=== PATIENT | male | born 1980 | race African-American/Black ===

== ENCOUNTER 2024-02-26 05:49 | Emergency (ER) | payer SELFPAY ==
[2024-02-26 05:47] VITALS: BP 129/90; PULSE 69; RESP 13; TEMP 36.7; O2SAT 98
[2024-02-26 06:00] VITALS: PULSE 68; O2SAT 97
[2024-02-26 07:43] VITALS: BP 132/90; PULSE 63; RESP 16; O2SAT 100
--- NOTE | 2024-02-26 07:50 | PC.NURSE ---
Pt. reports taking 750mg Keppra BID. Pt missed both doses yesterday. MD Vasquez notified.
--- NOTE | 2024-02-26 07:53 | ED.GENADULT ---
HPI - General Adult General Chief complaint: Seizure Stated complaint: Seizure Time Seen by Provider: 02/26/24 06:51 History of Present Illness HPI narrative: [age] male with history of seizure presented to the emergency department for evaluation after him a seizure. Patient states that he does take medications but missed his dose last night, and yesterday morning. Patient denies any current pain or complaint. Related Data Allergies Allergy/AdvReac Type Severity Reaction Status Date / Time No Known Allergies Allergy Verified 02/26/24 06:01 Review of Systems Review of Systems: All systems reviewed & are unremarkable except as noted in HPI and below Exam Narrative: APPEARANCE: Well appearing, no pain, no distress, well-nourished. HEAD: normocephalic, atraumatic. EYES: PERRLA/EOMI, conjunctivae clear. NOSE: Normal no drainage EARS:TMS clear with good light reflex. THROAT: Pharynx clear, no exudate. NECK: Supple. No adenopathy, no masses. RESPIRATORY: Airway patent, respirations nonlabored. Clear to auscultation bilaterally, no rales, rhonchi, wheezing. CARDIOVASCULAR: Regular rate and rhythm without murmurs rubs or gallops. ABDOMINAL: Soft, nontender, nondistended, normal bowel sounds MUSCULOSKELETAL: Moves all extremities. Strength/ROM intact, No edema, No calf tenderness. NEURO: Alert. Cranial nerves II through XII intact. Good gait. Good coordination SKIN: Warm, dry. Normal Color Course Vital Signs Vital signs: Vital Signs Temperature 98.1 F 02/26/24 05:47 Pulse Rate 69 02/26/24 05:47 Respiratory Rate 13 02/26/24 05:47 Blood Pressure 129/90 02/26/24 05:47 Pulse Oximetry 98 02/26/24 05:47 Oxygen Delivery Room Air 02/26/24 05:47 Temperature 98.1 F 02/26/24 05:47 Pulse Rate 88 02/26/24 09:31 Respiratory Rate 16 02/26/24 09:31 Blood Pressure 131/85 02/26/24 09:31 Pulse Oximetry 99 02/26/24 09:31 Oxygen Delivery Room Air 02/26/24 06:00 Medical Decision Making [facility] Narrative Medical decision making narrative: [age] old male presenting emergency department for evaluation for seizure after missing 2 doses of his Keppra. Patient takes 750 mg of Keppra b.i.d.. Patient was treated with 1 g of IV Keppra. Patient is afebrile with no leukocytosis and hemoglobin of 13.6. Patient has no significant abnormalities on his CMP. Can not is alert oriented and back to his baseline. Patient denies any pain or complaints. Patient was comfortable the plan for discharge. Patient states he does have access to his Keppra. Patient states he is feeling improved and patient was comfortable the plan for discharge to home. Differential Diagnosis Differential Diagnosis: Seizure, breakthrough seizure, medical noncompliance Vital Signs Vital Signs: Vital Signs Temperature 98.1 F 02/26/24 05:47 Pulse Rate 69 02/26/24 05:47 Respiratory Rate 13 02/26/24 05:47 Blood Pressure 129/90 02/26/24 05:47 Pulse Oximetry 98 02/26/24 05:47 Oxygen Delivery Room Air 02/26/24 05:47 Temperature 98.1 F 02/26/24 05:47 Pulse Rate 88 02/26/24 09:31 Respiratory Rate 16 02/26/24 09:31 Blood Pressure 131/85 02/26/24 09:31 Pulse Oximetry 99 02/26/24 09:31 Oxygen Delivery Room Air 02/26/24 06:00 Lab Data Lab results reviewed: Yes I reviewed the patient's lab results. 02/26/24 08:03 02/26/24 08:03 Labs: Lab Results 02/26/24 Range/Units 08:03 WBC 5.2 (4.5-10.0) K/mm3 RBC 4.72 (4.6-6.20) M/mm3 Hgb 13.6 L (14.0-18.0) g/dL Hct 42.5 (42.0-52.0) % MCV 90.0 (80-100) fl MCH 28.8 (26-34) pg MCHC 32.0 (32-36) g/dl RDW 13.1 (11.5-14.5) % Plt Count 237 (150-375) k/mm3 MPV 11.3 H (7.4-10.4) fl Immature Gran % (Auto) 0.2 (0-0.5) % Neut % (Auto) 58.7 (45.5-73.1) % Lymph % (Auto) 29.0 (18.3-44.2) % [place] % (Auto) 8.8 H (2.6-8.5) % Eos % (Auto) 2.7 (0-4.4) % Baso % (Auto) 0.6 (0.2-1.2) % Lymph # (Auto) 1.51 (0.9-3.2) K/mm3 [place] # (Auto) 0.5 (0.1-0.6) K/mm3 Eos # (Auto) 0.1 (0-0.3) K/mm3 Baso # (Auto) 0.0 (0.0-0.1) K/mm3 Abs Immat Gran (auto) 0.01 (0.00-0.031) K/mm3 Absolute Neuts (auto) 3.1 (1.3-6.7) K/mm3 Absolute Nucleated RBC 0.000 (0.0-0.012) K/mm3 Nucleated RBC % 0.0 (0.0-0.2) % Sodium 141 (137-145) mmol/L Potassium 4.2 (3.4-5.0) mmol/L Chloride 102 (98-107) mmol/L Carbon Dioxide 28 (22-30) mmol/L Anion Gap 11 (4-12) mmol/L BUN 12 (9-20) mg/dL Creatinine 0.82 (0.7-1.3) mg/dL Estim Creat Clear Calc 100 ml/min Estimated GFR > 60 (59 - ) Glucose 79 (65-110) mg/dL Calcium 9.6 (8.4-10.2) mg/dL Total Bilirubin 0.7 (0.2-1.3) mg/dL AST 31 (17-59) U/L ALT 17 (6-50) U/L Alkaline Phosphatase 90 (38-126) U/L Total Protein 8.0 (6.3-8.2) g/dL Albumin 4.7 (3.5-5.1) g/dL Discharge Plan Discharge Clinical Impression: Epileptic seizure Patient Disposition: Home, Self-Care Condition: Stable Instructions: Antibiotic Form, Epilepsy (ED) Additional Instructions: Take your Keppra as directed and do not miss any doses. Continue to have close follow-up with your neurologist and with your primary care physician. If you have any worsening symptoms then please call or return to the emergency department. Patient Language: Qatari Follow-up/Referrals: PHYSICIAN,SKI LIFT ATTENDANT [Primary Care Provider] -
[2024-02-26] MEDS: levETIRAcetam 1000MG/NACL100ML 1,000 MG/100 ML BAG 400 MG IVPB (08:01)
[2024-02-26] MEDS: SODIUM CHLORIDE 0.9% IV 1,000 ML 999 ML IV CONT (08:02)
[2024-02-26 08:11] LABS: Basophils Percent Auto 0.6 % (0.2-1.2); Eosinophils Absolute Auto 0.1 K/mm3 (0-0.3); Eosinophils Percent Auto 2.7 % (0-4.4); Hematocrit 42.5 % (42.0-52.0); Hemoglobin 13.6 g/dL (14.0-18.0); Immature Granulocyte Absolute 0.01 K/mm3 (0.00-0.031); Immature Granulocyte Percent A 0.2 % (0-0.5); Lymphocytes Absolute Auto 1.51 K/mm3 (0.9-3.2); Mean Corpuscular Hemoglobin 28.8 pg (26-34); Mean Platelet Volume 11.3 fl (7.4-10.4); Monocytes Absolute Auto 0.5 K/mm3 (0.1-0.6); Monocytes Percent Auto 8.8 % (2.6-8.5); Neutrophils Absolute Auto 3.1 K/mm3 (1.3-6.7); Neutrophils Percent Auto 58.7 % (45.5-73.1); Platelet Count Result 237 k/mm3 (150-375); Red Blood Count 4.72 M/mm3 (4.6-6.20); Red Cell Distribution Width 13.1 % (11.5-14.5); White Blood Count 5.2 K/mm3 (4.5-10.0)
[2024-02-26 08:21] LABS: Alanine Aminotransferase 17 U/L (6-50); Albumin Level 4.7 g/dL (3.5-5.1); Alkaline Phosphatase 90 U/L (38-126); Anion Gap 11 mmol/L (4-12); Aspartate Amino Transferase 31 U/L (17-59); Bilirubin,Total 0.7 mg/dL (0.2-1.3); Blood Urea Nitrogen 12 mg/dL (9-20); Calcium 9.6 mg/dL (8.4-10.2); Carbon Dioxide 28 mmol/L (22-30); Chloride 102 mmol/L (98-107); Estimated CRCL calculation 100 ml/min; Estimated Glomerular Filt Rate > 60; Glucose 79 mg/dL (65-110); Potassium 4.2 mmol/L (3.4-5.0); Sodium 141 mmol/L (137-145)
[2024-02-26 09:31] VITALS: BP 131/85; PULSE 88; RESP 16; O2SAT 99
--- OUTSIDE RECORDS SUMMARY | 2024-03-01 10:02 | XMS_ITS | Patient Health Summary ---
Author Organization [facility] [employer] Address [address] [place] [address] Care Team Providers Care Manager Foreign Name Role Phone Unavailable Primary Care Provider Unavailabl e Note from [facility] [employer] [employer],non-owned Affiliates and Associated Physician Practices is amultiple site organization consisting of ambulatory clinics and hospital sitesin [place], [place], [place] and [place]. This disclosure is being madepursuant to the Care Everywhere program and may not contain all information available regarding this patient. Last updated 17.[facility] [employer] Allergies No known active allergies Medications Be aware that medications may not be up to date on this document. Always verify current medications with the patient. No known medications Active Problems No known active problems Social History Tobacco Use Types Packs/Day Years Used Date Smoking Tobacco: Light Smoker Smokeless Tobacco: Never Tobacco Cessation:Ready to Q uit: Yes Alcohol Use Standard Drinks/Week Comments Yes 3 (1 standard drink = 0.6 oz pur e alcohol) Occasionally Sex and Gender Information Value Date Recorded Sex Assigned at Not on file Gender Identity Not on file Sexual Orientation Not on file Last Filed Vital Signs Vital Sign Reading Time Taken Comments Blood Pressure 159/92 02/12/2020 12:01 PM SHOTBLAST EQUIPMENT OPERATOR Pulse 67 02/12/2020 12:01 PM SHOTBLAST EQUIPMENT OPERATOR Temperature 36 ??C (96.8 ??F) 02/12/2020 12:01 PM SHOTBLAST EQUIPMENT OPERATOR Respiratory Rate 14 02/12/2020 12:01 PM SHOTBLAST EQUIPMENT OPERATOR Oxygen Saturation 99% 02/12/2020 12:01 PM SHOTBLAST EQUIPMENT OPERATOR Inhaled Oxygen Concentration - - Weight 83.9 kg (185 lb) 02/12/2020 12:01 PM SHOTBLAST EQUIPMENT OPERATOR Height 175.3 cm (5' 9 ) 02/12/2020 12:01 PM SHOTBLAST EQUIPMENT OPERATOR Body Mass Index 27.32 02/12/2020 12:01 PM SHOTBLAST EQUIPMENT OPERATOR Procedures * LIPID PROFILE(Performed 02/26/2020) Performed for Screening for hyperlipidemia * COMPREHENSIVE METABOLIC PANEL(Performed 02/26/2020) Performed for Screening for diabetes mellitus * XR FINGERS RIGHT 2VW OR MORE(Performed 01/20/2020) Performed for Foreign body of right index finger * ED FOREIGN BODY REMOVAL(Performed 01/20/2020) Performed for Foreign body of right index finger Results * (ABNORMAL) COMPREHENSIVE METABOLIC PANEL (02/26/2020 10:56 AM SHOTBLAST EQUIPMENT OPERATOR) [facility] Glucose 93 70 - 105 mg/dL [facility] ACCOUNT BILL BUN 14 8.9 - 20.6 mg/dL [facility] ACCOUNT BILL Creatinine 1.02 0.72 - 1.25 mg/dL [facility] ACCOUNT BILL eGFR by MDRD >60 >60 mL/min/1.7 3m2 [facility] ACCOUNT BILL eGFR by MDRD >60 >60 mL/min/1.7 3m2 [facility] ACCOUNT BILL Sodium 144 136 - 145 mmol/L [facility] ACCOUNT BILL Potassium 4.7 3.5 - 5.1 mmol/L [facility] ACCOUNT BILL Chloride 108(H) 98 - 107 mmol/L [facility] ACCOUNT BILL CO2 28 23 - 31 mmol/L [facility] ACCOUNT BILL Calcium 9.1 8.4 - 10.4 mg/dL [facility] ACCOUNT BILL Protein Total 6.8 6.4 - 8.3 gm/dL [facility] ACCOUNT BILL Albumin 4.3 3.5 - 5.2 gm/dL [facility] ACCOUNT BILL Bilirubin Total 0.3 0.2 - 1.2 mg/dL [facility] ACCOUNT BILL Comment:Attention clinician: Reference Range change. Alkaline Phosphatase 77 40 - 150 U/L [facility] ACCOUNT BILL Comment:Attention clinician: Reference Range change. AST 18 5 - 34 U/L [facility] ACCOUNT BILL ALT 13 0 - 61 U/L [facility] ACCOUNT BILL Blood BLOOD SPECIMEN / Unknown 02/26/2020 10:56 AM SHOTBLAST EQUIPMENT OPERATOR 02/26/2020 Narrative Resulting Agency Comment Lab Testing performed at: [address] ??[facility] [id number] Wilmer Archuleta MD LAB - CHEMISTRY LELE IBARRA [facility] ACCOUNT BILL [address] [place] [address] * LIPID PROFILE (02/26/2020 10:56 AM SHOTBLAST EQUIPMENT OPERATOR) Cholesterol 175 <200 mg/dL [facility] ACCOUNT BILL Triglycerides 53 <150 mg/dL [facility] ACCOUNT BILL HDL Cholesterol 68 >40 mg/dL [facility] ACCOUNT BILL VLDL Calculated 11 <=30 mg/dL [facility] ACCOUNT BILL LDL Calculated 96 <130 mg/dL [facility] ACCOUNT BILL Blood BLOOD SPECIMEN / Unknown 02/26/2020 10:56 AM SHOTBLAST EQUIPMENT OPERATOR 02/26/2020 Narrative Resulting Agency Comment Lab Testing performed at: [address] ??[facility] [id number] Wilmer Archuleta MD LAB - CHEMISTRY LELE IBARRA Performing Organization Address City/[facility]/ZIP Co de Phone Number [facility] ACCOUNT BILL [address] [place] [address] * XR FINGERS RIGHT 2VW OR MORE (01/20/2020 9:27 PM SHOTBLAST EQUIPMENT OPERATOR) Anatomical Region Laterality Modality Upper Extremity, Wrist / Hand Ra diographic Imaging 01/21/2020 7:09 AM SHOTBLAST EQUIPMENT OPERATOR Impressions 01/21/2020 8:34 AM SHOTBLAST EQUIPMENT OPERATOR Metallic needle projected in the soft tissues of the tip of the index finger. Edited by Kait Chopra on 01/21/2020 8:30 AM *Reading Radiologist: Roly Mckenzie on 01/21/2020 at 8:34 AM Narrative 01/21/2020 8:34 AM SHOTBLAST EQUIPMENT OPERATOR RIGHT FINGERS. HISTORY: Foreign body. Views of the finger demonstrate a metallic needle projected in the soft tissues of the tip of the index finger. No osseous involvement is seen. There is no fracture present. Procedure Note Roly Mckenzie MD - 01/21/2020 RIGHT FINGERS. HISTORY: Foreign body. Views of the finger demonstrate a metallic needle projected in the soft tissues of the tip of the index finger. No osseous involvement is seen. There is no fracture present. IMPRESSION Metallic needle projected in the soft tissues of the tip of the index finger. Edited by Kait Chopra on 01/21/2020 8:30 AM *Reading Radiologist: Roly Mckenzie on 01/21/2020 at 8:34 AM Hardik Whitt PA-C DIAGNOSTIC IMAGING ORDERABLES * Foreign Body (01/20/2020 9:13 PM SHOTBLAST EQUIPMENT OPERATOR) Narrative Rahel Mesa MD - 01/20/2020 9:13 PM SHOTBLAST EQUIPMENT OPERATOR Hardik Whitt PA-C ? 01/20/2020 10:59 PM Foreign Body Date/Time: 01/20/2020 10:57 PM Performed by: Hardik Whitt PA-C Authorized by: Hardik Whitt PA-C Consent: ??Consent obtained: ??Verbal ??Consent given by: ??Patient ??Risks discussed: ??Bleeding and pain ??Alternatives discussed: ??No treatment [place] protocol: ??Procedure explained and questions answered to patient or proxy's satisfaction: yes ?Required blood products, implants, devices, and special equipment available: yes ?Patient identity confirmed: ??Verbally with patient and arm band Location: ??Location: ??Finger ??Finger location: ??R index finger ??Depth: ??Subungual ??Tendon involvement: ??None Pre-procedure details: ??Imaging: ??X-ray ??Neurovascular status: intact ?? Anesthesia (see MAR for exact dosages): ??Anesthesia method: ??Local infiltration ??Local anesthetic: ??Bupivacaine 0.5% w/o epi Procedure type: ??Procedure complexity: ??Simple Procedure details: ??Dissection of underlying tissues: no ?Bloodless field: no ?Removal mechanism: pliers. ??Foreign bodies recovered: ??1 ??Description: ??Needle ??Intact foreign body removal: yes ?? Post-procedure details: ??Neurovascular status: intact ?Skin closure: ??None ??Dressing: ??Sterile dressing ??Patient tolerance of procedure: ??Tolerated well, no immediate complications Hardik Whitt PA-C PROCEDURE/MINOR MAYNOR GICAL ORDERABLES
--- OUTSIDE RECORDS SUMMARY | 2024-03-01 10:02 | XMS_ITS | Clinical Summary ---
Author Organization [facility] [employer] Address [address] [place] [address] Care Team Providers Care Surveyor Instrument Assistant Name Role Phone Unavailable Primary Care Provider Unavailabl e Source Comments [facility] [employer],non-owned Affiliates and Associated Physician Practices is amultiple site organization consisting of ambulatory clinics and hospital sitesin [place], [place], [place] and [place]. This disclosure is being madepursuant to the Care Everywhere program and may not contain all information available regarding this patient. Last updated 17.[facility] [employer] Allergies No known active allergies Medications Be aware that medications may not be up to date on this document. Always verify current medications with the patient. No known medications Active Problems No known active problems Family History Medical History Relation Name Comments Cancer - Colon Father Diabetes - Type 2 Mother Relation Name Status Comments Father Mother Alive Social History Tobacco Use Types Packs/Day Years [...] Comments Blood Pressure 159/92 02/12/2020 12:01 PM LONG FILLER CIGAR ROLLER MACHINE Pulse 67 02/12/2020 12:01 PM LONG FILLER CIGAR ROLLER MACHINE Temperature 36 ??C (96.8 ??F) 02/12/2020 12:01 PM LONG FILLER CIGAR ROLLER MACHINE Respiratory Rate 14 02/12/2020 12:01 PM LONG FILLER CIGAR ROLLER MACHINE Oxygen Saturation 99% 02/12/2020 12:01 PM LONG FILLER CIGAR ROLLER MACHINE Inhaled Oxygen Concentration - - Weight 83.9 kg (185 lb) 02/12/2020 12:01 PM LONG FILLER CIGAR ROLLER MACHINE Height 175.3 cm (5' 9 ) 02/12/2020 12:01 PM LONG FILLER CIGAR ROLLER MACHINE Body Mass Index 27.32 02/12/2020 12:01 PM LONG FILLER CIGAR ROLLER MACHINE Plan of Treatment Health Maintenance Due Date Last Done Comments HIV SCREENING 10/04/1994 HEPATITIS C SCREENING 09/30/1997 DTAP/TDAP/TD VACCINES (1 - Tdap) 10/04/1998 HEPATITIS B VACCINE (1 of 3 - 19+ 3-dose series) 10/04/1998 PNEUMOCOCCAL VACCINE (1 of 2 - PCV) 10/04/1998 SCREENING FOR DIABETES 02/25/2023 02/26/2020 COVID-19 VACCINE (1 - 2023-2 5 season) 2023 INFLUENZA VACCINE (#1) 2023 DEPRESSION SCREENING 02/08/2024 LIPID TESTING 02/25/2025 02/26/2020 ZOSTER VACCINE (1 of 2) 10/04/2029 HIB VACCINE Aged Out No longer eligi ble based on patient's age to complete this topic HPV VACCINE Aged Out No longer eligi ble based on patient's age to complete this topic MENINGOCOCCAL (Group B) VACCINE Aged Out No longer eligible based on patient's age to complete this topic MENINGOCOCCAL VACCINE Aged Out No shravan richa eligible based on patient's age to complete this topic Procedures Procedure Name Priority Date/Time Associated Diagnosis Comments COMPREHENSIVE METABOLIC PANEL Routine 02/26/2020 10:56 AM LONG FILLER CIGAR ROLLER MACHINE Screening for diabetes mellitus LIPID PROFILE Routine 02/26/2020 10:56 AM LONG FILLER CIGAR ROLLER MACHINE Screening for hyperlipidemia from Last 3 Months or Most Recently Relevant to Health Maintenance Results * (ABNORMAL) COMPREHENSIVE METABOLIC PANEL (02/26/2020 10:56 AM LONG FILLER CIGAR ROLLER MACHINE) Glucose 93 70 - 105 mg/dL [facility] [...] BLOOD SPECIMEN / Unknown 02/26/2020 10:56 AM LONG FILLER CIGAR ROLLER MACHINE 02/26/2020 Narrative Resulting Agency Comment Lab Testing performed at: [address] ??[facility] [id number] Wilmer Archuleta MD LAB - CHEMISTRY ORDLashae IBARRA Performing Organization Address City/[facility]/ZIP Co de Phone Number [facility] ACCOUNT BILL [address] [place] [address] * LIPID PROFILE (02/26/2020 10:56 AM LONG FILLER CIGAR ROLLER MACHINE) Cholesterol 175 <200 mg/dL [facility] ACCOUNT BILL Triglycerides 53 <150 mg/dL [facility] ACCOUNT BILL HDL Cholesterol 68 >40 mg/dL [facility] ACCOUNT BILL VLDL Calculated 11 <=30 mg/dL [facility] ACCOUNT BILL LDL Calculated 96 <130 mg/dL [facility] ACCOUNT BILL Blood BLOOD SPECIMEN / Unknown 02/26/2020 10:56 AM LONG FILLER CIGAR ROLLER MACHINE 02/26/2020 Narrative Resulting Agency Comment Lab Testing performed at: [address] ??[facility] [id number] Wilmer Archuleta MD LAB - CHEMISTRY LELE BIARRA [facility] ACCOUNT BILL [address] [place] [address] from Last 3 Months or Most Recently Relevant to Health Maintenance
--- OUTSIDE RECORDS SUMMARY | 2024-03-01 10:02 | XMS_ITS | Referral Summary ---
Author Organization [facility] [employer] Address [address] [place] [address] Care Team Providers Care Glass Designer Name Role Phone Unavailable Primary Care Provider Unavailabl e Source Comments [facility],non-owned Affiliates and Associated Physician Practices is amultiple site organization consisting of ambulatory clinics and hospital sitesin [place], [place], [place] and [place]. This disclosure is being madepursuant to the Care Everywhere program and may not contain all information available regarding this patient. Last updated 17.[facility] [employer] Allergies No known active allergies Medications Be [...] Comments Blood Pressure 159/92 02/12/2020 12:01 PM HAY SORTER Pulse 67 02/12/2020 12:01 PM HAY SORTER Temperature 36 ??C (96.8 ??F) 02/12/2020 12:01 PM HAY SORTER Respiratory Rate 14 02/12/2020 12:01 PM HAY SORTER Oxygen Saturation 99% 02/12/2020 12:01 PM HAY SORTER Inhaled Oxygen Concentration - - Weight 83.9 kg (185 lb) 02/12/2020 12:01 PM HAY SORTER Height 175.3 cm (5' 9 ) 02/12/2020 12:01 PM HAY SORTER Body Mass Index 27.32 02/12/2020 12:01 PM HAY SORTER Plan of Treatment Not on file Procedures Procedure Name Priority Date/Time Associated Diagnosis Comments COMPREHENSIVE METABOLIC PANEL Routine 02/26/2020 10:56 AM HAY SORTER Screening for diabetes mellitus LIPID PROFILE Routine 02/26/2020 10:56 AM HAY SORTER Screening for hyperlipidemia from Last 3 Months or Most Recently Relevant to Health Maintenance Results * (ABNORMAL) COMPREHENSIVE METABOLIC PANEL (02/26/2020 10:56 AM HAY SORTER) [facility] Glucose 93 70 - 105 mg/dL [facility] [...] BLOOD SPECIMEN / Unknown 02/26/2020 10:56 AM HAY SORTER 02/26/2020 Narrative Resulting Agency Comment Lab Testing performed at: [address] ??[facility] [id number] Wilmer Archuleta MD LAB - CHEMISTRY LELE IBARRA [facility] ACCOUNT BILL [address] [place] [address] * LIPID PROFILE (02/26/2020 10:56 AM HAY SORTER) Cholesterol 175 <200 mg/dL [facility] ACCOUNT BILL Triglycerides 53 <150 mg/dL [facility] ACCOUNT BILL HDL Cholesterol 68 >40 mg/dL [facility] ACCOUNT BILL VLDL Calculated 11 <=30 mg/dL [facility] ACCOUNT BILL LDL Calculated 96 <130 mg/dL [facility] ACCOUNT BILL Blood BLOOD SPECIMEN / Unknown 02/26/2020 10:56 AM HAY SORTER 02/26/2020 Narrative Resulting Agency Comment Lab Testing performed at: [address] ??[facility] [id number] Wilmer Archuleta MD LAB - CHEMISTRY LELE IBARRA [facility] ACCOUNT BILL [address] [place] [address] from Last 3 Months or Most Recently Relevant to Health Maintenance
--- OUTSIDE RECORDS SUMMARY | 2024-03-01 10:03 | XMS_ITS | Clinical Summary ---
Author Organization [facility] Address [address] [place] [address] Care Team Providers Care Wearing Apparel Folder Name Role Phone CesarnaseemBenedicto DO Primary Care Provider + Allergies No known active allergies Medications bacitracin 500 unit/gram ointment Apply topically 2 (two) times a day 14 g 0 Active Additional Information Patient not taking.Reported on 01/04/2024 levETIRAcetam (KEPPRA) 500 mg tablet Take 1.5 tablets (750 mg total) by mouth 2 (two) times a day 90 tablet 11 4 11/20/19 25 Active sertraline (ZOLOFT) 50 mg tabletIndicatio ns:Generalized Anxiety Disorder Take 2 tablets (100 mg total) by mouth daily 60 tablet 1 4 03/02/19 25 Active Active Problems Problem Noted Date Diagnosed Date Seizures 12/01/2023 Assessment & Plan (01/01/2024 4:51 PM CHARGE ACCOUNT IDENTIFICATION CLERK): Stable chronic condition. No acute concerns. Continue current prescribed therapy of Keppra. Monitor clinically. Assessment & Plan (12/01/2023 9:25 PM CDT): Acute issue. The negative previous blood work, CT scan, EEG, and MRI would be suggestive of nonepileptic seizures however patient history of postictal episode and loss of bladder control during these episodes are convincing. He was advised to continue the Keppra. High suspicion for multifactorial etiology including loss of job, marital strife, financial strain, new job, considerable caffeine consumption, nightly alcohol consumption, and sleep averaging 4 hours a night. He has already received a referral to Neurology. He was advised that the [facility] requires patient be seizure-free for six months before being allowed to drive. Repeat labs ordered and will be followed up. Patient to follow up in four weeks pertaining to his anxiety medications. We will reassess this matter as well. Generalized anxiety disorder 12/01/2023 Assessment & Plan (01/02/2024 1:53 PM CHARGE ACCOUNT IDENTIFICATION CLERK): Chronic condition. Improving per GAD7. Increase zoloft to 100mg PO every day. Will continue to monitor. Assessment & Plan (12/01/2023 9:18 PM CDT): Acute condition possibly contributing to his seizures. Regardless of connection with seizures he needs to be treated for considerable anxiety . He has been given referral to a psychologist as well. Close follow up within a month in order to reassess. Patient advised to reach out sooner than month if he has side effects with the Zoloft and we will change to Lexapro 10 mg p.o. q.d. 30 days with one refill. Monitor clinically. Poor sleep hygiene 12/01/2023 Assessment & Plan (01/02/2024 2:06 PM CHARGE ACCOUNT IDENTIFICATION CLERK): Chronic condition. Patient appears to be getting more sleep. Discussed how lack of sleep likely increases possibility of having a seizure such as the circumstances that occur with his most recent seizure. Advised that he needs to get over 6 hours of sleep and advised patient to have night time sleeping hours. Discussed his concerns about having a seizure in his sleep that was unwitnessed. Assessment & Plan (12/01/2023 9:21 PM CDT): Chronic condition with high suspicion that this is contributing to the patient's seizures. Discussed sleep hygiene and abstaining from marijuana and alcohol. Patient consumes two Kraftwurx energy drinks, each contain 160 milligrams of caffeine. This is under the recommended caffeine consumption of less than 400 mg a day, however this is likely a factor as well. Overweight with body mass in dex (BMI) of 26 to 26.9 in adult 08/23/2023 Assessment & Plan (01/02/2024 1:19 PM CHARGE ACCOUNT IDENTIFICATION CLERK): BMI Follow-up includes: nutrition counseling, exercise counseling, and education provided. Assessment & Plan (12/01/2023 2:12 PM CDT): BMI Follow-up includes: nutrition counseling, exercise counseling, and education provided. Assessment & Plan (08/23/2023 11:30 AM CDT): BMI Follow-up includes: nutrition counseling, exercise counseling, and education provided. Follow-up exam 08/23/2023 Assessment & Plan (12/01/2023 9:16 PM CDT): New patient encounter. Relevant available labs, studies, and charts reviewed. No critical concerns. Spent considerable amount of time discussing history and personal aspects of life. Patient is very passionate and verbose. Assessment & Plan (08/23/2023 11:42 AM CDT): Mahendra is a pleasant young man Mahendra was oriented to practice. I advised that Pt call office for any urgent concerns and reserve mychart communication for nonurgent issues. PT is aware that most lab/test results will be communicated through mychart if this is set up and any urgent results will be communicated by phone. Discussed that PT. should schedule apt for any new symptoms and always inform me of any worsened symptoms that have been previously discussed. Resolved Problems Problem Noted Date Diagnosed Date Resolved Date Recurrent major depression 12/01/2023 1 Encounters Date Type Department Care Team Description 02/10/2024 9:54 AM CHARGE ACCOUNT IDENTIFICATION CLERK - 02/10/2024 11:59 PM CHARGE ACCOUNT IDENTIFICATION CLERK Hospital Encounter [facility] [address] [place] [address] Rosie Harrison Nonintractable epilepsy without status epilepticus, unspecified epilepsy type (HCC) Discharge Disposition: Discharge to home or self care 01/04/2024 11:00 AM CHARGE ACCOUNT IDENTIFICATION CLERK Office Visit [facility] Epilepsy [address] [place] [address] [place] [address] Von Gupta MD Nonintractable epilepsy without status epilepticus, unspecified epilepsy type (HCC) (Primary Dx); Seizure-like activity (HCC) 01/02/2024 1:30 PM CHARGE ACCOUNT IDENTIFICATION CLERK Office Visit [facility] at [address] [address] Benedicto Tyler DO Follow-up exam (Primary Dx); Seizures (HCC); Generalized anxiety disorder; Poor sleep hygiene; Overweight with body mass index (BMI) of 26 to 26.9 in adult 12/13/2023 Telephone [facility] at [address] [address] Benedicto Tyler DO Medical Question/Miscellaneous 12/01/2023 2:00 PM CDT Office Visit [facility] at [address] [address] Benedicto Tyler DO Encounter to establish care with new doctor (Primary Dx); Seizures (HCC); Generalized anxiety disorder; Poor sleep hygiene; Overweight with body mass index (BMI) of 26 to 26.9 in adult from Last 3 Months Surgical History Surgery Date Site/Laterality Comments APPENDECTOMY 02/07/1991 - 02/07/1992 Medical History Medical History Date Comments No pertinent past medical history Family History Medical History Relation Name Comments No Known Problems Brother Prostate cancer Father Diabetes type II Mother Relation Name Status Comments Brother Father Mother Social History Tobacco Use Types Packs/Day Years Used Date Smoking Tobacco: Every Day Cigarillos Smokeless Tobacco: Never Tobacco Cessation:Ready to Q uit: Not Asked; Counseling Given: Not Answered Comments:Cloves is the brand PHQ-2 Answer Date Recorded PHQ-2 Total Score (If total score is 3 or more points, staff should administer the PHQ-9) 0 01/02/2024 Personal Safety Answer Date Recorded Have you ever been in or are you currently in a harmful physical or emotional relationship or is someone making you feel afraid or unsafe? Denies 11/20/2023 Sex and Gender Information Value Date Recorded Sex Assigned at Not on file Legal Sex Male 9:20 PM CHARGE ACCOUNT IDENTIFICATION CLERK Gender Identity Male 11/25/2023 9:35 AM CDT Sexual Orientation Choose not to disclose 2023 9:35 AM CDT Sexual Orientation Straight 11/25/2023 9: 35 AM CDT Obstetrics History Last Filed Vital Signs Vital Sign Reading Time Taken Comments Blood Pressure 131/91 01/04/2024 10:58 AM CHARGE ACCOUNT IDENTIFICATION CLERK Pulse 84 01/04/2024 10:58 AM CHARGE ACCOUNT IDENTIFICATION CLERK Temperature 36.4 ??C (97.5 ??F) 11/20/2023 6:18 AM CD T Respiratory Rate 18 11/20/2023 6:18 AM CDT Oxygen Saturation 98% 01/02/2024 1:19 PM CHARGE ACCOUNT IDENTIFICATION CLERK Inhaled Oxygen Concentration - - Weight 83.7 kg (184 lb 9.6 oz) 01/04/2024 10:58 AM CHARGE ACCOUNT IDENTIFICATION CLERK Height 175.3 cm (5' 9 ) 01/04/2024 10:58 AM CHARGE ACCOUNT IDENTIFICATION CLERK Body Mass Index 27.26 01/04/2024 10:58 AM CHARGE ACCOUNT IDENTIFICATION CLERK Plan of Treatment Health Maintenance Due Date Last Done Comments Hepatitis C Screening 1980 Prostate Cancer Screening-PSA 1980 Pneumococcal vaccine <65 (1 of 2 - PCV) 10/04/1985 DTaP/Tdap/Td Vaccine (1 - Tdap) 10/04/1990 Varicella Vaccines (1 of 2 - 13+ 2-dose series) 10/04/1992 Hepatitis B Screening 10/04/1997 Regular Well Visit/Exam 18-64 10/04/1997 Influenza Vaccine (#1) 2023 Depression Screening 01/01/2025 01/02/2024, 12/01/2023, 08/23/2023 HPV Vaccines Aged Out No longer eligi ble based on patient's age to complete this topic Procedures Procedure Name Priority Date/Time Associated Diagnosis Comments EEG Routine 02/10/2024 4:33 PM CHARGE ACCOUNT IDENTIFICATION CLERK Nonintractable epilepsy without status epilepticus, unspecified epilepsy type (HCC) CBC WITH AUTO DIFFERENTIAL Routine 12/01/2023 3:43 PM CDT Encounter to establish care with new doctor COMPREHENSIVE METABOLIC PANEL Routine 12/01/2023 3:43 PM CDT Encounter to establish care with new doctor THYROID FUNCTION CASCADE Routine 12/01/2023 3:43 PM CDT Encounter to establish care with new doctor LIPID PANEL Routine 12/01/2023 3:43 PM CDT Encounter to establish care with new doctor from Last 3 Months Results * EEG (02/10/2024 4:33 PM CHARGE ACCOUNT IDENTIFICATION CLERK) Anatomical Region Laterality Modality EEG Narrative 02/10/2024 4:33 PM CHARGE ACCOUNT IDENTIFICATION CLERK Extended EEG Report Patient Name: Mahendra Santos [facility] Medical Record Number (MRN): [id number] [facility] Record: [id number] Date of (): 1980 EEG Date: 02/10/2024 Ordering Provider: Von Gupta MD CC: Benedicto Tyler Start Time: 02/10/2024 11:13:19 AM ? End Time: ??02/10/2024 12:15:04 PM Introduction: Mr. Santos is a 43 y.o. male with a history of MDD/anxiety and epilepsy, with seizures described as whole body convulsions with associated tongue biting and urinary incontinence. EEG was performed to evaluate for seizures. This is a 32 channel EEG recording acquired on a [employer] EEG-1200 acquisition system. Scalp electrodes were placed according to the international 10-20 System. The analog EEG was filtered from 1-70 Hz and digitally sampled at 200 Hz. The record was then reformatted for review in bipolar and referential montages. EEG Description: The awake background included a 10 Hz posterior rhythm which attenuated with eye opening and activity. During drowsiness, identified by ocular signs and alpha attenuation, there was intermittent, diffuse, asynchronous theta activity admixed with 2-4 Hz polymorphic frontotemporal delta activity. Hyperventilation was not performed. Photic strobe stimulation elicited no abnormalities. There were no focal, lateralized or epileptiform abnormalities. Interpretation: This is a normal awake and stage I sleep extended EEG. By signing this report, the attending Electroencephalographer certifies that he/she personally reviewed the electrodiagnostics study and has edited this report to fully conform with his/her intent. Signing Attending: Kalin Cadet MD PhD us Von Pagan MD NEUROLOGY OR DERABLES Final Result * Thyroid Function [place] (12/01/2023 3:43 PM CDT) TSH 0.98 0.40 - 4.50 mIU/L [facility] Blood 12/01/2023 3:43 PM CDT 12/01/2023 10:54 PM CDT us Benedicto Tyler DO LAB BLOOD ORDERABLES Fin al Result [facility] [address] [place] [address] * (ABNORMAL) CBC with auto differential (12/01/2023 3:43 PM CDT) WBC 3.9 3.8 - 10.8 Thousand/u L [facility] RBC, POC 4.95 4.20 - 5.80 Million/uL [facility] Hgb 14.4 13.2 - 17.1 g/dL [facility] Hct 45.5 38.5 - 50.0 % [facility] MCV 91.9 80.0 - 100.0 fL [facility] MCH 29.1 27.0 - 33.0 pg [facility] MCHC 31.6(L) 32.0 - 36.0 g/dL [facility] Comment: For adults, a slight decrease in the calculated MCHC value (in the range of 30 to 32 g/dL) is most likely not clinically significant; however, it should be interpreted with caution in correlation with other red cell parameters and the patient's clinical condition. Rdw 12.4 11.0 - 15.0 % [facility] Platelets 236 140 - 400 Thousand/u L [facility] MPV 11.2 7.5 - 12.5 fL [facility] Neutrophils, abs 1,385(L) 1,500 - 7,800 cells/uL [facility] Lymphocytes, abs 1,821 850 - 3,900 cells/uL [facility] Monocyte abs 347 200 - 950 cells/uL [facility] Eosinophils, abs 316 15 - 500 cells/uL [facility] Basophils, abs 31 0 - 200 cells/uL [facility] Neutrophils 35.5 % [facility] Lymphocyte pct 46.7 % [facility] Monocytes 8.9 % [facility] Eosinophils 8.1 % [facility] Basophils 0.8 % [facility] Blood 12/01/2023 3:43 PM CDT 12/01/2023 10:54 PM CDT Benedicto Tyler DO LAB BLOOD ORDERABLES Fin al Result [facility] [address] [place] [address] * Lipid panel (12/01/2023 3:43 PM CDT) Cholesterol 181 <200 mg/dL [facility] HDL 66 > OR = 40 mg/dL [facility] Triglycerides 81 <150 mg/dL [facility] LDL 98 mg/dL (calc) [facility] Comment: Reference range: <100 Desirable range <100 mg/dL for primary prevention; ?? <70 mg/dL for patients with CHD or diabetic patients with > or = 2 CHD risk factors. LDL-C is now calculated using the Stephen calculation, which is a validated novel method providing better accuracy than the Friedewald equation in the estimation of LDL-C. Miguelito ZUNIGA et al. CHANCE. 2013;310(19): 8913-8525 (http://education.Order Mapper/faq/QAA575) Chol/HDL ratio 2.7 <5.0 (calc) [facility] Non-HDL, (LDL+VLDL) 115 <130 mg/dL (calc) [facility] Comment: For patients with diabetes plus 1 major ASCVD risk factor, treating to a non-HDL-C goal of <100 mg/dL (LDL-C of <70 mg/dL) is considered a therapeutic option. Blood 12/01/2023 3:43 PM CDT 12/01/2023 10:54 PM CDT us Benedicto Tyler DO LAB BLOOD ORDERABLES Fin al Result [facility] [address] [place] [address] * Comprehensive metabolic panel (12/01/2023 3:43 PM CDT) Glucose 78 65 - 99 mg/dL [facility] Comment: ? Fasting reference interval BUN 12 7 - 25 mg/dL [facility] Creatinine 0.74 0.60 - 1.29 mg/dL [facility] eGFR 115 > OR = 60 mL/min/1.7 3m2 [facility] BUN/creat ratio SEE NOTE: (calc) [facility] Comment: ?? Not Reported: BUN and Creatinine are within ?? reference range. ? Sodium 138 135 - 146 mmol/L [facility] Potassium, pl 4.3 3.5 - 5.3 mmol/L [facility] Chloride 101 98 - 110 mmol/L [facility] CO2 29 20 - 32 mmol/L [facility] Calcium 10.0 8.6 - 10.3 mg/dL [facility] Protein, sr 7.2 6.1 - 8.1 g/dL [facility] Albumin 4.9 3.6 - 5.1 g/dL [facility] GLOBULIN 2.3 1.9 - 3.7 g/dL (calc) [facility] Alb/glob ratio 2.1 1.0 - 2.5 (calc) [facility] Bilirubin, total 0.8 0.2 - 1.2 mg/dL [facility] Alk phos 65 36 - 130 U/L [facility] AST 25 10 - 40 U/L [facility] ALT (SGPT) 32 9 - 46 U/L [facility] Blood 12/01/2023 3:43 PM CDT 12/01/2023 10:54 PM CDT Benedicto Tyler DO LAB BLOOD ORDERABLES Fin al Result [facility] [address] [place] [address] from Last 3 Months Insurance [employer] ACCESS CHOICE [employer] ACCESS CHOICE ANTHEM ACCESS CHOICE Care Teams Wearing Apparel Folder Relationship Specialty Start Date End Date Benedicto Tyler DO [address] [place] [address] PCP - General Family Medicine 12/01/23
--- OUTSIDE RECORDS SUMMARY | 2024-03-01 10:03 | XMS_ITS | Referral Summary ---
Author Organization [facility] Address [address] [place] [address] Care Team Providers Care Program Engineer Name Role Phone Benedicto Tyler DO Primary Care Provider + Encounters Date Type Department Care Team Description 02/10/2024 9:54 AM RECLAMATION SUPERVISOR - 02/10/2024 11:59 PM RECLAMATION SUPERVISOR [facility] [address] [place] [address] Rosie Harrison Nonintractable epilepsy without status epilepticus, unspecified epilepsy type (HCC) Discharge Disposition: Discharge to home or self care 01/04/2024 11:00 AM RECLAMATION SUPERVISOR Office Visit [facility] [address] [facility] 6[address] [place] [address] [place] [id number] Von Gupta MD Nonintractable epilepsy without status epilepticus, unspecified epilepsy type (HCC) (Primary Dx); Seizure-like activity (HCC) 01/02/2024 1:30 PM RECLAMATION SUPERVISOR Office Visit [facility] at [address] [place] [address] Benedicto Tyler DO Follow-up exam (Primary Dx); Seizures (HCC); Generalized anxiety disorder; Poor sleep hygiene; Overweight with body mass index (BMI) of 26 to 26.9 in adult 12/13/2023 Telephone [facility] Primary [facility] at [address] [phone] Benedicto Tyler DO Medical Question/Miscellaneous 12/01/2023 2:00 PM CDT Office Visit [facility] Primary Care at [address] [phone] Benedicto Tyler DO Encounter to establish care with new doctor (Primary Dx); Seizures (HCC); Generalized anxiety disorder; Poor sleep hygiene; Overweight with body mass index (BMI) of 26 to 26.9 in adult from Last 3 Months Allergies No known active allergies Medications bacitracin [...] 12/01/2023 Assessment & Plan (01/01/2024 4:51 PM RECLAMATION SUPERVISOR): Stable chronic condition. No acute concerns. Continue [...] to Neurology. He was advised that the [facility] requires patient be seizure-free for six months before being allowed to drive. Repeat labs ordered and will be followed up. Patient to follow up in four weeks pertaining to his anxiety medications. We will reassess this matter as well. Generalized anxiety disorder 12/01/2023 Assessment & Plan (01/02/2024 1:53 PM RECLAMATION SUPERVISOR): Chronic condition. Improving per GAD7. Increase zoloft [...] 12/01/2023 Assessment & Plan (01/02/2024 2:06 PM RECLAMATION SUPERVISOR): Chronic condition. Patient appears to be getting [...] from marijuana and alcohol. Patient consumes two elevator starter energy drinks, each contain 160 milligrams of caffeine. This is under the recommended caffeine consumption of less than 400 mg a day, however this is likely a factor as well. Overweight with body mass in dex (BMI) of 26 to 26.9 in adult 08/23/2023 Assessment & Plan (01/02/2024 1:19 PM RECLAMATION SUPERVISOR): BMI Follow-up includes: nutrition counseling, exercise counseling, [...] office for any urgent concerns and reserve flexReceiptshart communication for nonurgent issues. PT is aware that most lab/test results will be communicated through flexReceiptshart if this is set up and any urgent results will be communicated by phone. Discussed that PT. should schedule apt for any new symptoms and always inform me of any worsened symptoms that have been previously discussed. Resolved Problems Problem Noted Date Diagnosed Date Resolved Date Recurrent major depression 12/01/2023 1 Social History Tobacco Use Types Packs/Day Years [...] on file Legal Sex Male 9:20 PM RECLAMATION SUPERVISOR Gender Identity Male 11/25/2023 9:35 AM CDT Sexual Orientation Choose not to disclose 2023 9:35 AM CDT Sexual Orientation Straight 11/25/2023 9: 35 AM CDT Last Filed Vital Signs Vital Sign Reading Time Taken Comments Blood Pressure 131/91 01/04/2024 10:58 AM RECLAMATION SUPERVISOR Pulse 84 01/04/2024 10:58 AM RECLAMATION SUPERVISOR Temperature 36.4 ??C (97.5 ??F) 11/20/2023 6:18 AM CD T Respiratory Rate 18 11/20/2023 6:18 AM CDT Oxygen Saturation 98% 01/02/2024 1:19 PM RECLAMATION SUPERVISOR Inhaled Oxygen Concentration - - Weight 83.7 kg (184 lb 9.6 oz) 01/04/2024 10:58 AM RECLAMATION SUPERVISOR Height 175.3 cm (5' 9 ) 01/04/2024 10:58 AM RECLAMATION SUPERVISOR Body Mass Index 27.26 01/04/2024 10:58 AM RECLAMATION SUPERVISOR Plan of Treatment Not on file Procedures Procedure Name Priority Date/Time Associated Diagnosis Comments EEG Routine 02/10/2024 4:33 PM RECLAMATION SUPERVISOR Nonintractable epilepsy without status epilepticus, unspecified epilepsy [...] Months Results * EEG (02/10/2024 4:33 PM RECLAMATION SUPERVISOR) Anatomical Region Laterality Modality EEG Narrative 02/10/2024 4:33 PM RECLAMATION SUPERVISOR Extended EEG Report Patient Name: Mahendra [facility] Medical Record Number (MRN): [id number] [facility] Record: [id number] Date of (): 1980 EEG Date: 02/10/2024 [...] 32 channel EEG recording acquired on a [employer] EEG-1200 acquisition system. Scalp electrodes were placed [...] OR DERABLES Final Result * Thyroid Function [place] (12/01/2023 3:43 PM CDT) TSH 0.98 0.40 - 4.50 mIU/L [facility] Blood 12/01/2023 3:43 PM CDT 12/01/2023 10:54 PM CDT us Benedicto Tyler DO LAB BLOOD ORDERABLES Fin al Result [facility] [address] [place] [address] * (ABNORMAL) CBC with auto differential (12/01/2023 3:43 PM CDT) [facility] WBC 3.9 3.8 - 10.8 Thousand/u L [...] 236 140 - 400 Thousand/u L [facility] MPV 11.2 7.5 - 12.5 fL [facility] Neutrophils, abs 1,385(L) 1,500 - 7,800 cells/uL [facility] Lymphocytes, abs 1,821 850 - 3,900 cells/uL [facility] Monocyte abs 347 200 - 950 cells/uL [facility] Eosinophils, abs 316 15 - 500 cells/uL [facility] Basophils, abs 31 0 - 200 cells/uL [facility] Neutrophils 35.5 % [facility] Lymphocyte pct 46.7 % [facility] Monocytes 8.9 % [facility] Eosinophils 8.1 % [facility] Basophils 0.8 % [facility] Blood 12/01/2023 3:43 PM CDT 12/01/2023 10:54 PM CDT Benedicto Tyler DO LAB BLOOD ORDERABLES Fin al Result Performing Organization Address [facility]/ZIP Co de Phone Number [email or web address] [address] [place] [address] * Lipid panel (12/01/2023 3:43 PM CDT) Cholesterol 181 <200 mg/dL [facility] HDL 66 > OR = 40 mg/dL [facility] Triglycerides 81 <150 mg/dL [facility] LDL 98 mg/dL (calc) [facility] Comment: Reference range: <100 Desirable range <100 mg/dL for primary prevention; ?? <70 mg/dL for patients with CHD or diabetic patients with > or = 2 CHD risk factors. LDL-C is now calculated using the Stephen calculation, which is a validated novel method providing better accuracy than the Friedewald equation in the estimation of LDL-C. Miguelito SS et al. CHANCE. 2013;310(19): 6320-9033 (http://education.Air2Web/faq/UIF253) Chol/HDL ratio 2.7 <5.0 (calc) [facility] Non-HDL, (LDL+VLDL) 115 <130 mg/dL (calc) [facility] Comment: For patients with diabetes plus 1 major ASCVD risk factor, treating to a non-HDL-C goal of <100 mg/dL (LDL-C of <70 mg/dL) is considered a therapeutic option. Blood 12/01/2023 3:43 PM CDT 12/01/2023 10:54 PM CDT Benedicto Tyler DO LAB BLOOD ORDERABLES Fin al Result Performing Organization Address [facility] Co de Phone Number [facility] [address] [place] [address] * Comprehensive metabolic panel (12/01/2023 3:43 PM CDT) Glucose 78 65 - 99 mg/dL [facility] Comment: ? Fasting reference interval BUN 12 7 - 25 mg/dL [facility] Creatinine 0.74 0.60 - 1.29 mg/dL [facility] eGFR 115 > OR = 60 mL/min/1.7 3m2 [facility] BUN/creat ratio SEE NOTE: (calc) [facility] Comment: ?? Not Reported: BUN and Creatinine are within ?? reference range. ? Sodium 138 135 - 146 mmol/L [facility] Potassium, pl 4.3 3.5 - 5.3 mmol/L [facility] Chloride 101 98 - 110 mmol/L [facility] CO2 29 20 - 32 mmol/L [facility] Calcium 10.0 8.6 - 10.3 mg/dL [facility] Protein, sr 7.2 6.1 - 8.1 g/dL [facility] Albumin 4.9 3.6 - 5.1 g/dL [facility] GLOBULIN 2.3 1.9 - 3.7 g/dL (calc) [facility] Wheeler Alb/glob ratio 2.1 1.0 - 2.5 (calc) [facility] Bilirubin, total 0.8 0.2 - 1.2 mg/dL [facility] Alk phos 65 36 - 130 U/L [facility] AST 25 10 - 40 U/L [facility] Wheeler ALT (SGPT) 32 9 - 46 U/L [facility] Blood 12/01/2023 3:43 PM CDT 12/01/2023 10:54 PM CDT us Benedicto Tyler DO LAB BLOOD ORDERABLES Fin al Result [facility] [address] [place] [address] from Last 3 Months Insurance ANTHEM ACCESS CHOICE ANTHEM ACCESS CHOICE ANTHEM ACCESS CHOICE Member Subscriber Plan / Payer ( fective 2023-Present) Name:Mahendra Santos Relation to Subscriber:Spouse Name:Samara Farley Date of :1978 (Home) Address: [address] [place] [address] Payer ID:[id number] (NAIC) Type:[employer] Address: [id number] [place] [id number] Care Teams Program Engineer Relationship Specialty Start Date End Date Benedicto Tyler DO [address] [facility] [address] [place] [address] PCP - General Family Medicine 12/01/23
== END 2024-02-26 09:32 | disposition home or self-care (01) ==
PROVIDERS: Emergency Provider Emergency Medicine
DX: G40.909 Epilepsy, unspecified, not intractable, without status epilepticus (principal); T42.6X6A Underdosing of other antiepileptic and sedative-hypnotic drugs, initial encounter
CPT/HCPCS: 36415; 80053; 85025; 96361; 96374; 99284; J1953; J7030